=== PATIENT | female | born 1945 | race Caucasian/White ===

== ENCOUNTER 2018-05-18 12:11 | Emergency (ER) | payer OTHER ==
[~2018-05-18] VITALS: Ht 157.5 cm; Wt 49.4 kg
[~2018-05-18 12:11] MED LIST: ATENOLOL 25 MG25 M1 PO; AVONEX30 MCG; AZO-TABS95 MG PO; CEFTIN 250 MG250 MG PO; CIPRO250 M1 PO; CIPRO500 M1 PO; COLACE 100 MG100 MG PO; FLAGYL500 MG PO; FLORANEX TABLE1 EACH PO; FOSAMAX 70 MG T70 MG PO; HYDROCODONE-AP1 EAC6 PO; KEPPRA 500 MG500 M1 PO; LEVETIRACETAM PO; NITROFURANTOIN100 MG; NORCO 5-325 TA1 EACH PO; OSELB75 PO; PLEGRIDY125 MCG/0. SQ; TRAMADOL 50 MG50 MG PO; TYLENOL325 MG PO; VERAPAMIL ER120 M1 PO; VERAPAMIL ER120 MG; VITAMIN D1000 UNI1 PO; ZOCOR20 MG PO; ZOFRAN ODT4 MG PO
[2018-05-18] MEDS ORDERED: IBUPROFEN 800800 M1 PO (12:29)
[2018-05-18] MEDS ORDERED: [UNRECOGNIZED DRUG - CODE] IM (12:30)
[2018-05-18] MEDS ORDERED: CLOTRIMAZOLE-BE15 GM (12:37)
[2018-05-18 13:38] LABS: URINE BILIRUBIN NEGATIVE (Negative); URINE BLOOD NEGATIVE (Negative); URINE CLARITY CLEAR; URINE COLOR YELLOW; URINE GLUCOSE-RANDOM NEGATIVE (Negative); URINE KETONES NEGATIVE (Negative); URINE LEUKOCYTES NEGATIVE (Negative); URINE NITRITE NEGATIVE (Negative); URINE PROTEIN NEGATIVE (Negative); URINE SPECIFIC GRAVITY <= 1.005 (1.005-1.030); URINE UROBILINOGEN 0.2 E.U./dl (0.2-1.0)
[2018-05-18] MEDS ORDERED: VAGISIL CREAM28 G1 VAG (15:20)
[2018-05-18] MEDS ORDERED: MONISTAT 7 COM1 EAC1 VAG (15:37)
[2018-05-18 15:40] VITALS: BP 152/71
== END 2018-05-18 15:40 | disposition home or self-care (01) ==
LOC: M.ERS 12:11
PROVIDERS: Nurse Practitioner Family
DX: R30.0 Dysuria (principal); N89.8 Other specified noninflammatory disorders of vagina; E78.5 Hyperlipidemia, unspecified; I10 Essential (primary) hypertension; Z88.1 Allergy status to other antibiotic agents; Z88.8 Allergy status to other drugs, medicaments and biological substances; Z90.710 Acquired absence of both cervix and uterus

== ENCOUNTER 2019-12-07 21:39 | Inpatient (IN) | payer OTHER ==
[~2019-12-07] VITALS: Ht 157.5 cm; Wt 57.5 kg
[~2019-12-07 21:39] MED LIST changes: +CLOTRIMAZOLE-BE15 GM; +IBUPROFEN 800800 M1 PO; +MONISTAT 7 COM1 EAC1 VAG; +VAGISIL CREAM28 G1 VAG; +[UNRECOGNIZED DRUG - CODE] IM
[2019-12-07 21:40] VITALS: BP 199/100
[2019-12-07 23:02] LABS: ABSOLUTE LYMPHOCYTES 0.4 thou/uL (0.8-5.3); ABSOLUTE MONOCYTES 0.4 thou/uL (0.0-1.2); ABSOLUTE NEUTROPHILS 3.6 thou/uL (1.6-8.1); BASOPHILS 0.8 %; EOSINOPHILS 0.5 %; HEMATOCRIT 34.7 % (37.0-47.0); LYMPHOCYTES 8.5 %; MCHC 34.5 g/dL (28.0-37.0); MCV 95.6 fL (80.0-100.0); MONOCYTES 8.8 %; MPV 8.3 fl. (7.2-11.1); NUCLEATED RBCS 0 /100WBC; PLATELET COUNT* 141 thou/uL (150-400); POLYS 81.4 %; RBC 3.63 mil/uL (4.20-5.00); RDW-CV 13.2 % (10.5-14.5); WBC 4.4 thou/uL (4.0-11.0)
[2019-12-07 23:05] LABS: CALCIUM 8.9 mg/dL (8.5-10.1); POTASSIUM 3.9 mmol/L (3.5-5.1)
[2019-12-07 23:47] LABS: URINE BILIRUBIN NEGATIVE (Negative); URINE BLOOD NEGATIVE (Negative); URINE CLARITY CLEAR; URINE COLOR YELLOW; URINE GLUCOSE-RANDOM NEGATIVE (Negative); URINE KETONES NEGATIVE (Negative); URINE LEUKOCYTES-REFLEX NEGATIVE (Negative); URINE NITRITE-REFLEX NEGATIVE (Negative); URINE PROTEIN NEGATIVE (Negative); URINE UROBILINOGEN 0.2 E.U./dl (0.2-1.0)
[2019-12-07 23:58] VITALS: BP 189/102
[2019-12-08] VITALS: BP 200/100
[2019-12-08 04:00] VITALS: BP 122/65
[2019-12-08 09:24] VITALS: BP 202/100
[2019-12-08 11:39] VITALS: BP 202/100
[2019-12-08 16:00] VITALS: BP 133/71
[2019-12-08 20:00] VITALS: BP 124/66
[2019-12-09] VITALS: BP 119/61
[2019-12-09 04:53] LABS: HEMATOCRIT 27.3 % (37.0-47.0)
[2019-12-09 05:17] LABS: HEMOGLOBIN 9.6 gm/dL (12.0-15.0)
[2019-12-09 08:23] VITALS: BP 136/73
[2019-12-09 10:28] LABS: MCH 33.3 pg (26.0-34.0); MCHC 34.6 g/dL (28.0-37.0); MCV 96.2 fL (80.0-100.0); MPV 9.3 fl. (7.2-11.1); RBC 2.85 mil/uL (4.20-5.00); RDW-CV 13.3 % (10.5-14.5); WBC 8.5 thou/uL (4.0-11.0)
[2019-12-09 10:45] LABS: ALBUMIN 2.8 g/dL (3.4-5.0); CALCIUM 7.9 mg/dL (8.5-10.1); CREATININE 1.3 mg/dL (0.6-1.3); POTASSIUM 4.3 mmol/L (3.5-5.1); TOTAL BILIRUBIN 0.6 mg/dL (<0.1-1.0); TOTAL PROTEIN 5.7 g/dL (6.4-8.2)
[2019-12-09 11:58] VITALS: BP 132/70
[2019-12-09 16:47] VITALS: BP 135/79
[2019-12-09 20:27] VITALS: BP 150/83
[2019-12-10 04:52] LABS: HEMATOCRIT 26.5 % (37.0-47.0); HEMOGLOBIN 9.3 gm/dL (12.0-15.0)
[2019-12-10 08:00] VITALS: BP 134/55
[2019-12-10] MEDS ORDERED: DULCOLAX STOOL100 M1 PO (11:48)
[2019-12-10] MEDS ORDERED: ELIQUIS2.5 MG PO (11:49)
[2019-12-10] MEDS ORDERED: NORCO 5-325 TA1 EAC1 PO (11:52)
--- NOTE | 2019-12-10 12:08 | OP ---
[address] [address] OPERATIVE REPORT Name: HARDIKFATUMA HIGGINBOTHAM Room: [address] IN M.R.#: [id number] Admission: 12/07/19 Attend Phys: Sarabjit Wise Discharge: Date of : 41 Report #: [id number] THIS REPORT FOR: //name// cc: Alcides Pretty Bradley Dean DO ~ THIS REPORT FOR: //name// CC: Alcides Patrick DATE OF SERVICE: 12/08/2019 PREOPERATIVE DIAGNOSIS: Displaced right subcapital hip fracture. History of osteoporosis and breast cancer. POSTOPERATIVE DIAGNOSIS: Displaced right subcapital hip fracture. History of osteoporosis and breast cancer. SURGERY PERFORMED: Cemented Jamison right bipolar hemiarthroplasty. SURGEON: Brian Billings DO ECONOMIC RESEARCH ANALYST: Dr. Campos. SECOND BALLROOM DANCE INSTRUCTOR: Dr. Ch. ANESTHESIA: General anesthetic. ANTIBIOTICS: The patient did receive Ancef 1 gram IV piggyback preoperatively. SPECIMENS: Femoral head. COMPLICATIONS: None. ESTIMATED BLOOD LOSS: 200 mL. GROSS FINDINGS: Prior to surgery, this patient demonstrated radiographically and clinically a painful right hip correlated with a displaced right subcapital hip fracture. Intraoperative findings correlated with the fracture hematoma definitely a femoral neck fracture was completed 100% displaced. Bone was very soft and on examination visualization, so a cemented hip arthroplasty was selected, especially with her breast cancer history. DESCRIPTION OF PROCEDURE: At this point in time, surgery is as follows: The patient was taken to the operating room and placed on table, given the benefit of a general anesthetic and secured over on her left [place] [address] OPERATIVE REPORT Name: FATUMA DYE Room: [address] IN M.R.#: [id number] Admission: 12/07/19 Attend Phys: Sarabjit Wise Discharge: Date of : 41 Report #: [id number] underwent a Hibiclens scrub and chlorhexidine prep and sterile draping for right hip surgery. Timeout was called and verified by everyone in the room for the right hip. At this point in time, a slightly curvilinear incision was made over the trochanter extending proximally and distally with a 10 blade scalpel through skin and subcutaneous tissues followed with a tensor incision, which was reflected. A Charnley retractor was applied deep. The gluteus medius and minimus were reflected off the insertion at the greater trochanter with electrocautery. Hip capsule was next cut with an H fashion and the femoral neck was exposed. I did maintain hemostasis throughout surgery. Surgery began cutting the femoral neck to a nice smooth surface using the femoral cutting guide. At this point in time, then we did go ahead and removed the femoral head, looked at the acetabulum. She had some irregular distal osteophyte inferiorly on the acetabulum, so I had to use a 46 reamer to get it flat and smoothed out, so a 45 component bipolar fit quite nicely down and seated. Surgery now continued at this point in time with broaching the femoral canal and did a box osteotome first broached to a 14 fit pretty good, so we elected to cement a size 14 stem in her. Distal femoral restrictor was applied with pulsatile lavage irrigated the knee and restricted initially, now restricted the cement into the canal compressed it and then cemented that 12 over top, 12 Jamison femoral stem into position, held until cement had hardened. A trial reduction with a 3.5 plus femoral head 28 x 45 bipolar was stable. Surgery now continued to remove the trial component. I seated into place, the real 28 mm head. It was a +3 with a 45 bipolar component tamped it into position on the femoral stem. It was stable. The hip was reduced, copiously irrigated, checked for stability. It was stable. I closed the capsule with #1 Vicryl in [id number] fashion followed with the reinsertion of the gluteus medius and minimus on the trochanter with #5 Ti-Cron followed with subcutaneous tissues, 2-0 Monocryl in a running Stratafix, Dermabond to the skin with Mepilex dressing. She was now transferred off the table, taken to recovery in stable condition. An abductor wedge was applied. Anesthesia said during cementing technique which we had alerted them prior to cementing, she did not have any major fluctuations in the blood pressure. <ELECTRONICALLY SIGNED> By: Brian Billings DO 12/10/19 1208 1454 1529Brian Billings DO /ish
[2019-12-10 12:27] VITALS: BP 134/55
--- NOTE | 2019-12-10 13:08 | PATH ---
[address] [address] PATHOLOGY RPT PROCEDURE Name: MARIAN DYE Room: [address] IN ..#: [id number] Admission: 12/07/19 Date of : 41 Discharge: Report #: [id number] Path Case #: [id number] [facility] Accession Number: [id number] . 01 Material submitted: . hip - RIGHT FEMORAL HEAD. Modifiers: right . 01 Clinical history: . Displaced right subcapital fracture . 02 Diagnosis: Right femoral head: - Benign femoral head including scant hematopoietic elements with osteoporosis and evidence of fracture including fresh stromal hemorrhage. (SYLVIA:chino; 12/10/2019) MBR 12/10/2019 1157 Local . 02 Electronically signed: . Shahab Arenas MD, Pathologist NPI- [id number] . 01 Gross description: . The specimen is received in formalin, labeled "Marian Dye, right femoral head" and consists of a femoral head measuring 4.2 x 4.2 x 3.8 cm. The articular surface is smooth raines while the opposite neck aspect is hemorrhagic and irregular consistent with a fracture. Sectioning reveals hemorrhagic bone cut surfaces and a full-thickness u.s. representative section is submitted in A1-A2 following decalcification. (SDY; 12/09/2019) SYU/SYU 12/10/2019 1156 Local . 02 Pathologist provided ICD-10: M81.8 . 02 CPT . 480117, 915640 Specimen Comment: A courtesy copy of this report has been sent to [phone], [phone] Specimen Comment: [phone], Specimen Comment: Report sent to ,DR MIRANDA / DR JIMENEZ Performed at: [address], [place], [place] [id number] MD Al Campos MD Phone: [phone] Performed at: 02 [facility] [address], [place], [place] [id number] MD Shahab Arenas MD Phone: [phone]
--- NOTE | 2019-12-12 12:23 | EKG ---
[place] [address] ELECTROCARDIOGRAM REPORT Name: DAVYFATUMA MENDEZ Room: [address] DIS IN M.R.#: [id number] Admission: 12/07/19 Attend Phys: aSrabjit ivory Sa Discharge: 12/10/19 Date of : 41 Date of Service: 12/08/19 1041 Report #: [id number] THIS REPORT FOR: //name// [facility] Test Date: 2019-12-08 Test Time: 10:41:25 Pat Name: FATUMA DYE Department: Room: [address] Gender: F Agency Service Representative: MILAN : 1945 Requested By: Sarabjit Patrick Order Number: [id number] Reading MD: Steve Salvador Measurements Intervals [place] Rate: 91 P: 62 ND: 141 QRS: 18 QRSD: 84 T: 46 QT: 398 QTc: 490 Interpretive Statements Sinus rhythm Atrial premature complexes Probable left atrial enlargement Borderline prolonged QT interval Compared to ECG 05/19/2017 08:31:35 Atrial premature complex(es) now present Electronically Signed On 12-08-2019 11:00:22 CDT by Steve Salvador [email or web address] <ELECTRONICALLY SIGNED> By: Steve Salvador MD, FACC 12/08/19 1100 1041 1041 Steve Salvador MD, FAC /EPI
== END 2019-12-10 16:05 | DRG 470 ==
LOC: M.ERS 21:39 → M.TBA-ER 22:59 → M.2W 22:59
PROVIDERS: Emergency Medicine; Internal Medicine; Orthopaedic Surgery; ADMIT Family Medicine
PROC: 0SRR0J9 Replacement of Right Hip Joint, Femoral Surface with Synthetic Substitute, Cemented, Open Approach (ICD-10-PCS; principal; 2019-12-08)
DX: S72.011A Unspecified intracapsular fracture of right femur, initial encounter for closed fracture (principal); E78.5 Hyperlipidemia, unspecified; I10 Essential (primary) hypertension; G35 Multiple sclerosis; M81.0 Age-related osteoporosis without current pathological fracture; W18.39XA Other fall on same level, initial encounter; Y93.89 Activity, other specified; Y92.090 Kitchen in other non-institutional residence as the place of occurrence of the external cause; Y99.8 Other external cause status; Z88.1 Allergy status to other antibiotic agents; Z88.8 Allergy status to other drugs, medicaments and biological substances; Z90.710 Acquired absence of both cervix and uterus; Z79.899 Other long term (current) drug therapy; Z87.891 Personal history of nicotine dependence; Z85.3 Personal history of malignant neoplasm of breast; Z82.49 Family history of ischemic heart disease and other diseases of the circulatory system